=== PATIENT | male | born 1980 | race Caucasian/White ===

== ENCOUNTER → 2018-04-26 | Outpatient (CLI) | payer OTHER | END | disposition home or self-care (01) | LOC: NUCLEAR 07:00 | DX: K80.20 Calculus of gallbladder without cholecystitis without obstruction (principal); E66.3 Overweight; K21.0 Gastro-esophageal reflux disease with esophagitis | CPT/HCPCS: 78227; A9537; J2805 ==

== ENCOUNTER → 2019-03-21 09:11 | Outpatient (CLI) | payer OTHER ==
[~2019-03-21 09:11] MED LIST: COZAAR50 MG PO; THORAZINE25 MG PO
== END | disposition home or self-care (01) ==
LOC: LAB 09:11
DX: R10.84 Generalized abdominal pain (principal)

== ENCOUNTER 2019-03-21 10:39 | Outpatient (CLI) | payer OTHER | END 2019-03-21 17:00 | disposition home or self-care (01) | LOC: TOM 10:39 | DX: R10.84 Generalized abdominal pain (principal) ==

== ENCOUNTER 2019-03-23 02:20 | Emergency (ER) | payer OTHER ==
[~2019-03-23] VITALS: Ht 177.8 cm; Wt 95.3 kg
[2019-03-23] MEDS ORDERED: COZAAR50 MG PO (02:29)
[2019-03-23] MEDS ORDERED: THORAZINE25 MG PO (04:21)
== END 2019-03-23 04:42 | disposition home or self-care (01) ==
LOC: ER 02:20
DX: R06.6 Hiccough (principal)

== ENCOUNTER 2019-05-31 08:15 | Inpatient (IN) | payer OTHER ==
[~2019-05-31] VITALS: Ht 177.8 cm; Wt 95.3 kg
[2019-05-31] MEDS ORDERED: PROTONIX40 MG PO (11:06)
[2019-05-31] MEDS ORDERED: ZANTAC300 MG PO (11:06)
== END 2019-06-06 10:29 | disposition home or self-care (01) | DRG 658 ==
LOC: ADM 08:15 → SURH 06-04 05:45 → O/R 06-04 05:45 → SURH 06-04 07:00 → CIR.AMB 06-04 08:15 → EDSTATUS 06-04 08:15 → SURH 06-04 11:57 → ADM 06-21 08:30
PROVIDERS: ADMIT Urology
PROC: 0WQF4ZZ Repair Abdominal Wall, Percutaneous Endoscopic Approach (ICD-10-PCS; 2019-06-04)
PROC: 0TT14ZZ Resection of Left Kidney, Percutaneous Endoscopic Approach (ICD-10-PCS; principal; 2019-06-04 07:00)
DX: C64.2 Malignant neoplasm of left kidney, except renal pelvis (principal); K42.9 Umbilical hernia without obstruction or gangrene

== ENCOUNTER 2019-09-18 10:35 | Outpatient (CLI) | payer OTHER ==
[~2019-09-18 10:35] MED LIST changes: +PROTONIX40 MG PO; +ZANTAC300 MG PO
== END 2019-09-18 10:43 | disposition home or self-care (01) ==
LOC: RAD 10:35
DX: C64.2 Malignant neoplasm of left kidney, except renal pelvis (principal)

== ENCOUNTER 2023-08-15 09:17 | Outpatient (CLI) | payer OTHER | END 2023-08-15 09:25 | disposition home or self-care (01) | LOC: RAD 09:17 | PROVIDERS: ATTEND General Practice | DX: R07.1 Chest pain on breathing (principal) ==